=== PATIENT | female | born 1970 | race Caucasian/White ===

== ENCOUNTER → 2016-09-01 | Outpatient (CLI) | payer OTHER ==
[2016-09-01 16:52] LABS: FREE T4 (FREE THYROXINE) 1.8 ng/dL (0.93-1.71)
== END ==
LOC: LAB 15:52
PROVIDERS: ATTEND Student in an Organized Health Care Education/Training Program
DX: E89.0 Postprocedural hypothyroidism (principal); E53.8 Deficiency of other specified B group vitamins; Z86.39 Personal history of other endocrine, nutritional and metabolic disease
CPT/HCPCS: 36415; 82306; 82607; 82746; 84439; 84443; 84480

== ENCOUNTER → 2016-10-21 | Outpatient (CLI) | payer OTHER ==
[2016-10-21 14:08] LABS: FREE T4 (FREE THYROXINE) 1.67 ng/dL (0.93-1.71)
== END ==
LOC: LAB 12:55
PROVIDERS: ATTEND Student in an Organized Health Care Education/Training Program
DX: E89.0 Postprocedural hypothyroidism (principal); E53.8 Deficiency of other specified B group vitamins; E05.00 Thyrotoxicosis with diffuse goiter without thyrotoxic crisis or storm; Z86.39 Personal history of other endocrine, nutritional and metabolic disease
CPT/HCPCS: 36415; 82607; 83921; 84439; 84443; 84480

== ENCOUNTER 2016-12-20 09:49 | Observation (INO) | payer OTHER ==
[2016-12-20] MEDS ORDERED: NITROGLYCERIN 0.4 MG SL TAB (BOTTLE OF 3) SL ONE (09:58)
[2016-12-20] MEDS ORDERED: ASPIRIN 81 MG (BABY) CHEWABLE TABLET ONE (09:58)
[2016-12-20] MEDS ORDERED: ASPIRIN 81 MG (BABY) CHEWABLE TABLET PO ONE (09:59)
[2016-12-20] MEDS ORDERED: NORMAL SALINE 10 ML SYRINGE FLUSH IVP PRN (09:59)
[2016-12-20] MEDS ORDERED: Sodium Chloride 0.9% 1,000 ML PRIMARY IV ONE (09:59)
[2016-12-20] MEDS: NITROGLYCERIN 0.4 MG SL TAB (BOTTLE OF 3) SL PRN ×3 (10:01→10:14)
--- NOTE | 2016-12-20 10:01 | EKG ---
[address] [address] Measurements Intervals [place] Rate: 77 P: 34 NC: 144 QRS: 27 QRSD: 82 T: 33 QT: 380 QTc: 412 Interpretive Statements SINUS RHYTHM SEPTAL MYOCARDIAL INFARCTION PROBABLY OLD Compared to ECG 11/22/2013 17:54:04 Myocardial infarct finding now present Sinus arrhythmia no longer present Electronically Signed On 12-20-16 16:11:29 MDT by Justin Keen [id number]
[2016-12-20 10:13] LABS: EOSINOPHILS # (AUTO) 0.19 10*3/UL; MEAN CORPUSCULAR HEMOGLOBIN 28.8 PG (27-31)
--- NOTE | 2016-12-20 10:23 | PDOC ---
Chest Pain HPI - General Chief Complaint: Chest Pain Stated Complaint: chest pain and down L arm Date Seen by Provider: 12/20/16 Time Seen by Provider: 09:50 Source: Patient Exam Limitations: POSITIVE: No limitations Treatment Prior to Arrival: REPORTS: None Nurse's Notes Reviewed & Considered: Yes - History of Present Illness Initial Comments: The patient is a 46-year-old female who presents to the emergency department with complaints of chest pain. She states that shortly after waking up this morning she had onset of chest pain. She has been busy at work this morning and has had continued pain. The pain fluctuates however has not completely resolved and is currently about an 8 out of 10. She describes the pain as being in the left side of her chest with some radiation towards her left arm. She has some associated nausea however denies palpitations, lightheadedness, shortness of breath or any other associated symptoms. She reports that she has not had similar pain previously. Her pain is not worsened with activity or with taking a deep breath. She denies any known history of hypertension, diabetes or hyperlipidemia although she admits she has not had her blood work checked for some time. She does not have any known history of heart disease or blood clots. - Patient Home Medications Home Medications: Home Medications Levothyroxine Sodium 1 tab PO DAILY tab 06/21/16 - Patient Allergies Allergies/Adverse Reactions: Allergies Allergy/AdvReac Type Severity Reaction Status Date / Time No Known Drug Allergies Allergy NOT Verified 12/20/16 13:52 APPLICABLE Past Medical History - heen HEENT History: Other (please comment) Additional HEENT History: HX OF EYE SX (STRABISMUS) Cardiovascular History: Denies History Respiratory History: Sleep Apnea, Home CPAP Use, Snoring Gastrointestinal History: Denies History Genitourinary History: Denies History Endocrine History: Hypothyroidism, Hyperthyroidism Additional Endocrine History: GRAVES DISEASE. DECOMPRESSION SURGERY. LATERAL RELEASE. 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 Neurological History: Migraines Blood Disorders: Denies History Psychiatric History: Depression History of Sexually Transmitted Diseases: No Cancer History: Denies History History of MDRO: No History of Other Communicable Diseases: No Alcohol Use: None Substance Use Type: None Previous Surgical History: Yes Type / Date of Surgery: C SECTION X 2/ FEI/ EYE SX/ THOROIDECTOMY/ TONSILLECTOMY/ TUBAL/ LEFT KNEE SCOPE Anesthesia Reactions: No Malignant Hyperthermia: No Significant Family History: Heart disease, Diabetes, Other (please comment) Additional Family History: THYROID Past Medical History Reviewed: Reviewed - No Changes ROS - Limitations ROS Limitations: No Limitations Constitution: REPORTS: Denies Symptoms Cardiovascular: REPORTS: Chest Pain, Edema (She reports frequent edema in her lower extremities). DENIES: Heart Racing, Heart Palpitations Respiratory: REPORTS: Denies Resp Symptoms. DENIES: Hurts To Breathe, Shortness Of Breath Neurological: REPORTS: Denies Neuro Symptoms Gastrointestinal: REPORTS: Nausea. DENIES: Abdominal Pain, Vomitting Musculoskeletal: REPORTS: Lower Extremity Swelling. DENIES: Calf Pain Eyes: REPORTS: Denies Symptoms ENT: REPORTS: Denies Symptoms Skin: DENIES: Rash Chest Pain PE - General Appearance General Appearance: REPORTS: Alert, Cooperative, No Acute Distress - HEENT HEENT: POSITIVE: Head Inspection Nml, Eyes Inspection Nml, Ears Inspection Nml, Pharynx Inspect. Nml - Neck Neck: REPORTS: Normal Inspection. DENIES: JVD Present - Respiratory Respiratory: REPORTS: No Respiratory Distress, Breath Sounds Normal - Cardiovascular Cardiovascular: REPORTS: Regular Rate and Rhythm, Heart Sounds Normal - Abdomen Abdomen: Soft: (All Quadrants), Denies Tenderness: (All Quadrants), No Distention: (All Quadrants) - Skin Skin: REPORTS: Intact, No Rash - Extremities Extremity: Normal ROM: (All Extremities) Additional Extremities Details: Some edema noted in the lower extremities bilaterally - Neurological / Psychological Neurological: POSITIVE: Oriented X3, Motor Normal, Sensation Normal, Other (No focal neurologic deficits) Chest Pain Progress - Results Reviewed by me Xrays/CTs/US Reviewed by me: Yes Discussed with Radiologist: Yes Radiology Findings: Portable chest x-ray is unremarkable. CT PE protocol is negative for any PE or dissection, no other acute findings per radiologist Lab Results:: Laboratory Results 12/20/16 Range/Units 10:07 WBC 7.78 (4.8-10.8) 10^3/uL RBC 4.75 (4.20-5.40) 10^6/uL Hgb 13.7 (12.0-16.0) g/dL Hct 41.2 (37.0-47.0) % MCV 86.7 (81-99) FL MCH 28.8 (27-31) PG MCHC 33.3 (33-37) g/dL RDW Std Deviation 44.2 (39-50) fL RDW Coeff of Iqra 14.1 (11.5-14.5) % Plt Count 352 H (140-350) 10*3/uL MPV 10.4 (7.4-12.2) FL Immature Gran % (Auto) 0.3 (0-5) % Neut % (Auto) 59.9 (50-80) % Lymph % (Auto) 27.6 (10-50) % [place] % (Auto) 8.5 (5-15) % Eos % (Auto) 2.4 (0-8) % Baso % (Auto) 1.3 H (0-1) % Immature Gran # (Auto) 0.02 10*3/UL Neut # (Auto) 4.66 10*3/UL Lymph # (Auto) 2.15 10*3/uL [place] # (Auto) 0.66 (0.3-0.8) 10*3/UL Eos # (Auto) 0.19 10*3/UL Baso # (Auto) 0.10 10*3/UL WBC Morphology Comment Normal morphology (NORM) Plt Morphology Comment Normal morphology (NORM) RBC Morph Comment Normal morphology (NORM) D-Dimer 0.28 (0.00-0.59) mg/L Sodium 140 (135-145) meq/L Potassium 3.9 (3.8-5.2) meq/L Chloride 104 (98-112) meq/L Carbon Dioxide 20 L (23-33) meq/L Anion Gap 16 (5-20) BUN 21 (7-22) mg/dL Creatinine 0.8 (0.50-1.20) mg/dL Estimated GFR > 60 (>60 ml/min/1.73m(2)) BUN/Creatinine Ratio 26.25 H (6-20) Glucose 90 (78-110) mg/dL Calculated Osmolality 292.0 (267-292) mOsm/kg Calcium 9.7 (8.7-10.7) mg/dL Magnesium 1.7 (1.6-2.4) mg/dL Total Bilirubin 0.5 (0.3-1.2) mg/dL AST 15 (8-39) IU/L ALT 27 (9-52) IU/L Alkaline Phosphatase 79 (38-126) IU/L CK-MB (CK-2) 2.06 (0.00-5.00) NG/ML Troponin I < 0.012 (< 0.040) ng/mL Total Protein 7.6 (6.1-8.0) g/dL Albumin 4.1 (3.5-4.8) g/dL Globulin 3.5 (2.50-4.10) g/dL Albumin/Globulin Ratio 1.10 L (1.3-2.0) mg/g Amylase 72 (30-110) U/L Lipase 62 (23-300) IU/L EKG Interpreted/Reviewed By Me:: Yes EKG Interpretation:: POSITIVE: Normal Sinus Rhythm, Normal Rate, Normal Intervals, Normal QRS, Other (She does have a T-wave inversion in lead 3this was not present on previous EKG from 2013 however the T-wave was flat in that lead on that particular exam, no ST segment changes) - Patient's Progress MDM / ED Course: Her initial EKG shows no obvious ST segment changes. She was given aspirin per chest pain protocol as well as sublingual nitroglycerin. The nitroglycerin resulted in no improvement in her chest pain and she subsequently received fentanyl and Zofran with some improvement in pain. Her lab work reveals a normal d-dimer and normal troponin and other lab work is essentially unremarkable. Because of her ongoing pain a CTA of her chest was performed which was negative for PE or dissection. The patient did receive Protonix 40 mg IV. At this point the exact etiology of her pain is unclear. It is possible this may be reflux related. Decision was made to admit for further cardiac monitoring and workup. Dr. Paula has agreed to admit the patient. - Consult Counseled: POSITIVE: Patient, RE: Lab Results, RE: Radiology Results, RE: DX Patient Care Time - Estimated PCT Patient Care Time (In Minutes): 35 Vital Signs - Recent Vital Signs Vital Signs: Vital Signs (Last 8 hours) Temp Pulse Pulse Pulse Pulse Resp BP 12/20/16 13:41 68 12/20/16 13:37 97.7 F 56 L 18 125/57 12/20/16 12:55 96.8 F 12/20/16 10:10 65 18 108/64 12/20/16 10:08 68 18 129/84 12/20/16 09:59 77 12/20/16 09:49 97.4 F 71 70 71 22 138/78 Pulse Ox 12/20/16 13:41 12/20/16 13:37 94 12/20/16 12:55 12/20/16 10:10 94 12/20/16 10:08 86 12/20/16 09:59 12/20/16 09:49 96 - VS Reviewed Vital Signs Reviewed: Yes Discharge Clinical Impression: Chest pain Discharge Disposition: Admit to Observation Condition: Fair
[2016-12-20 10:27] LABS: BASOPHILS % (AUTO) 1.3 % (0-1); EOSINOPHILS % (AUTO) 2.4 % (0-8); HEMATOCRIT 41.2 % (37.0-47.0); HEMOGLOBIN 13.7 g/dL (12.0-16.0); LYMPHOCYTES # (AUTO) 2.15 10*3/uL; MEAN CORPUSCULAR HGB CONC 33.3 g/dL (33-37); MEAN CORPUSCULAR VOLUME 86.7 FL (81-99); MEAN PLATELET VOLUME 10.4 FL (7.4-12.2); MONOCYTES # (AUTO) 0.66 10*3/UL (0.3-0.8); MONOCYTES % (AUTO) 8.5 % (5-15); NEUTROPHILS # (AUTO) 4.66 10*3/UL; NEUTROPHILS % (AUTO) 59.9 % (50-80); RED BLOOD COUNT 4.75 10^6/uL (4.20-5.40)
[2016-12-20 10:30] LABS: PLATELET MORPHOLOGY COMMENT NORMAL MORPHOLOGY (NORM); RBC MORPHOLOGY COMMENT NORMAL MORPHOLOGY (NORM); WBC MORPHOLOGY COMMENT NORMAL MORPHOLOGY (NORM)
[2016-12-20 10:36] LABS: BLOOD UREA NITROGEN 21 mg/dL (7-22); BUN/CREATININE RATIO 26.25 (6-20); CALCIUM 9.7 mg/dL (8.7-10.7); EST GLOMERULAR FILTRATION > 60 (>60 ml/min/1.73m(2)); LIPASE 62 IU/L (23-300); MAGNESIUM 1.7 mg/dL (1.6-2.4); SERUM ALBUMIN 4.1 g/dL (3.5-4.8)
[2016-12-20] MEDS ORDERED: ONDANSETRON 4 MG/2 ML VIAL IVP ONE (10:37)
[2016-12-20] MEDS: fentaNYL Inj 100 MCG/2 ML VIAL IVP ONE ×2 (10:43→11:11)
[2016-12-20 10:58] LABS: CREATINE KINASE MB 2.06 NG/ML (0.00-5.00)
[2016-12-20 11:00] LABS: TROPONIN I < 0.012 ng/mL (< 0.040)
--- NOTE | 2016-12-20 11:00 | DI ---
XR CXR 1VW,12/20/2016 9:59 AM: Clinical History: Chest pain Previous Exam: November 22, 2013 Findings: A single frontal radiograph of the chest is obtained, and demonstrates clear lungs. The cardiomediast inum and bony thorax are unremarkable. Impression: No acute disease.
--- NOTE | 2016-12-20 12:40 | DI ---
CT CTA CHEST NONCORONARY W/WO,12/20/2016 11:11 AM: Clinical History: Chest pain. Previous Exam: None at this facility. IV contrast: 75 cc Isovue 350 Findings: Multiple helically acquired CT images are obtained through the chest following a CT chest angiogram p rotocol, and demonstrate normal pulmonary arteries without filling defect nor truncation to suggest p ulmonary embolism. There is some mild edema within the dependent lungs. The heart is normal. The upper abdomen is unremarkable. The aorta is within normal limits. Impression: 1. No evidence of pulmonary embolism.
[2016-12-20] MEDS ORDERED: Pantoprazole Inj 40 MG in Normal Saline Flush 10 ML IVP ONE (12:47)
[2016-12-20] MEDS ORDERED: ROCURONIUM 10 MG/1 ML - 5 ML VIAL IVP ONE (13:19)
[2016-12-20] MEDS ORDERED: LIDOCAINE W/ SODIUM BICARB 0.5 ML SYR SUBD PRN (13:34)
[2016-12-20] MEDS ORDERED: PROMETHAZINE 25 MG/1 ML VIAL IM PRN (13:34)
[2016-12-20] MEDS ORDERED: NITROGLYCERIN 0.4 MG SL TAB (BOTTLE OF 3) SL PRN (13:34)
--- NOTE | 2016-12-20 16:24 | PDOC ---
History and Physical - History of Present Illness History of Present Illness: This very year-old female who when she woke up this morning to go to work start having some chest pains the pain was continuous at times it got better but never totally went away she says it radiates to the left side of Iqra arm accompanied by some nausea and vomiting but denies shortness of breath or diaphoresis her pain is not worse with activity or taking a deep breath her past medical history significant for hypothyroidism She was admitted by the hospitalist service for further evaluation and treatment Past Medical History Medical History: Hypothyroidism Tobacco Use: Current Every Day Smoker Do you dip or chew tobacco: No Substance Use Type: None Alcohol Use: None Medication / Allergies Home Medications: Home Medications Medication Instructions Recorded Confirmed Type Levothyroxine Sodium 1 tab PO DAILY tab 06/21/16 12/20/16 History Allergies/Adverse Reactions: Allergies Allergy/AdvReac Type Severity Reaction Status Date / Time No Known Drug Allergies Allergy NOT Verified 12/20/16 13:52 APPLICABLE Review of Systems - Review of Systems All Systems: Reviewed & No Additional Complaints Except as Stated - Respiratory Respiratory: DENIES: Negative System Review, Cough, Sputum, Dyspnea At Rest, Dyspnea with Exertion, Pleuritic Pain, Hemoptysis, Wheezing, Other, See HPI - Cardiovascular Cardiovascular: REPORTS: Chest Pain - Gastrointestinal Gastrointestinal / Abdominal: REPORTS: Nausea - Musculoskeletal Musculoskeletal: DENIES: Negative System Review, Back Pain, Neck Pain, Swelling , Calf Pain, Muscle Pain, Cramping, Joint Pain - Hands, Joint Pain - Elbows, Joint Pain - Shoulders, Joint Pain - Hips, Joint Pain - Knees, Joint Pain - Feet , AM Stiffness, Other, See HPI Exam - Vitals Vital Signs: Vital Signs Temperature 97.7 F Temperature Source Oral Pulse Rate [Pulse Oximeter] 56 Pulse Rate [Telemetry] 68 Pulse Rate 57 Respiratory Rate 18 Blood Pressure [Right Arm] 125/57 Pulse Ox 94 Oxygen Delivery Method Room Air Height 5 ft 3 in Weight 128.73 kg - General General Appearance: POSITIVE: No Acute Distress, Cooperative - Head Head Exam: POSITIVE: Normal Inspection, Normocephalic, Atraumatic - Eye Eye Exam: POSITIVE: Normal Appearance, PERRL, EOMI - Respiratory Respiratory Exam: POSITIVE: Clear to Auscultation - Bilaterally, Breathing Non Labored, Normal To Percussion, Normal to Percussion and Palpation - Cardiovascular Cardiovascular Exam: POSITIVE: RRR, No Murmur, No Clicks, No Gallops - GI/Abdominal GI/Abdominal Exam: POSITIVE: Normal Bowel Sounds, Non Distended, Soft - Extremities Extremities Exam: POSITIVE: No Clubbing Present, No Edema Present, No Cyanosis Present - Neurological Neurological Exam: POSITIVE: Alert, Oriented x 3, CN II-XII Intact, No Facial Droop Results - Labs CBC and BMP: 12/20/16 10:07 12/20/16 10:07 Assessment and Plan - Patient Problems (1) Chest pain Current Visit: Yes Status: Acute Comment: Rule out with troponins first set is negative no EKG changes this is atypical pain it is reproducible when I push in the middle of her chest she says that the same intensity (2) Costochondritis Current Visit: Yes Status: Acute Comment: Most likely diagnoses but she is a smoker one pack a day we will get a stress test Photo / Body Diagrams - Uploaded Photos Uploaded Photos:
[2016-12-20 16:54] LABS: TROPONIN I < 0.012 ng/mL (< 0.040)
[2016-12-20] MEDS ORDERED: Sodium Chloride 0.9% 1,000 ML ONE (18:05)
[2016-12-20] MEDS ORDERED: KETOROLAC 15 MG/1 ML VIAL IVP SCH (18:45)
[2016-12-20] MEDS: KETOROLAC 15 MG/1 ML VIAL IVP PRN (18:55)
[2016-12-20] MEDS: NORMAL SALINE 10 ML SYRINGE FLUSH IVP PRN ×2 (18:56→22:12)
[2016-12-20] MEDS: ONDANSETRON 4 MG/2 ML VIAL IVP PRN (22:12)
[2016-12-21] MEDS ORDERED: Sodium Chloride 0.9% 1,000 ML IV ONE (00:31)
[2016-12-21] MEDS: Loperamide Tab 2 MG TABLET PO PRN ×2 (00:54→05:17)
[2016-12-21] MEDS: Sodium Chloride 0.9% 1,000 ML PRIMARY IV SCH ×2 (01:43→11:39)
[2016-12-21 05:02] LABS: BLOOD UREA NITROGEN 16 mg/dL (7-22); CALCIUM 8.7 mg/dL (8.7-10.7); CHOL/HDL RATIO 4.56 RATIO (0-4.0); EST GLOMERULAR FILTRATION > 60 (>60 ml/min/1.73m(2)); HDL CHOLESTEROL 46 mg/dL (40-150); SERUM ALBUMIN 3.6 g/dL (3.5-4.8); SERUM CHOLESTEROL 210 mg/dL (120-200)
[2016-12-21] MEDS: LEVOTHYROXINE 88 MCG TABLET PO SCH (05:18)
[2016-12-21] MEDS: NORMAL SALINE 10 ML SYRINGE FLUSH IVP PRN (07:40)
[2016-12-21] MEDS: ONDANSETRON 4 MG/2 ML VIAL IVP PRN (07:40)
[2016-12-21] MEDS: Pantoprazole Inj 40 MG in Normal Saline Flush 10 ML IVP SCH (09:22)
[2016-12-21] MEDS: ENOXAPARIN SODIUM 40 MG/0.4 ML SYRINGE SUBCUT SCH (09:22)
--- NOTE | 2016-12-21 10:23 | STRESSTEST ---
[facility] [place] Interpretive Statements This is a 46 YO female with chest pain without known risk factors for CAD who presented with chest pain. Not able to do treadmill stress test due to morbid obesity. Reina scan stress test done. resting EKG is NSR. test completed and patient had symptoms of "feeling like jelly", resolved. Plan: images to follow and radiology to review. [id number]
[2016-12-21 11:55] LABS: FREE T4 (FREE THYROXINE) 1.55 ng/dL (0.93-1.71)
--- NOTE | 2016-12-21 14:03 | PDOC(PROG) ---
Date and Time of Service: 12/21/2016, 1400 Interval History: States her chest pain is gone. She feels nauseous and has diarrhea. Thus far, stool workup is negative with negative C. difficile study. At first part of stress test today with stress component today. Resting images to follow tomorrow. She also wondered about her thyroid function. She states she has had a cholecystectomy in the past and a thyroidectomy in the past. Objective : Data - Labs CBC and BMP: 12/20/16 10:07 12/21/16 04:30 Labs - Last 24 Hours: Laboratory Results 12/20/16 12/20/16 12/21/16 Range/Units 15:58 22:07 04:30 D-Dimer 0.35 (0.00-0.59) mg/L Sodium 140 (135-145) meq/L Potassium 4.5 (3.8-5.2) meq/L Chloride 107 (98-112) meq/L Carbon Dioxide 21 L (23-33) meq/L Anion Gap 12 (5-20) BUN 16 (7-22) mg/dL Creatinine 0.8 (0.50-1.20) mg/dL Estimated GFR > 60 (>60 ml/min/1.73m(2)) BUN/Creatinine Ratio 20.00 (6-20) Glucose 98 (78-110) mg/dL Calculated Osmolality 290.0 (267-292) mOsm/kg Calcium 8.7 (8.7-10.7) mg/dL Total Bilirubin 0.4 (0.3-1.2) mg/dL AST 13 (8-39) IU/L ALT 25 (9-52) IU/L Alkaline Phosphatase 68 (38-126) IU/L Total Creatine Kinase 68 (30-135) IU/L Troponin I < 0.012 < 0.012 (< 0.040) ng/mL Total Protein 6.5 (6.1-8.0) g/dL Albumin 3.6 (3.5-4.8) g/dL Globulin 2.9 (2.50-4.10) g/dL Albumin/Globulin Ratio 1.20 L (1.3-2.0) mg/g Triglycerides 153 (44-200) mg/dL Cholesterol 210 H (120-200) mg/dL LDL Cholesterol, Calc 133.400 mg/dL VLDL Cholesterol 30 (0-40) mg/dL HDL Cholesterol 46 (40-150) mg/dL Cholesterol/HDL Ratio 4.56 H (0-4.0) RATIO TSH (0.2700-4.2000) uIU/mL Free T4 (0.93-1.71) ng/dL Free T3 pg/mL (2.77-5.27) PG/ML 12/21/16 Range/Units 05:00 D-Dimer (0.00-0.59) mg/L Sodium (135-145) meq/L Potassium (3.8-5.2) meq/L Chloride (98-112) meq/L Carbon Dioxide (23-33) meq/L Anion Gap (5-20) BUN (7-22) mg/dL Creatinine (0.50-1.20) mg/dL Estimated GFR (>60 ml/min/1.73m(2)) BUN/Creatinine Ratio (6-20) Glucose (78-110) mg/dL Calculated Osmolality (267-292) mOsm/kg Calcium (8.7-10.7) mg/dL Total Bilirubin (0.3-1.2) mg/dL AST (8-39) IU/L ALT (9-52) IU/L Alkaline Phosphatase (38-126) IU/L Total Creatine Kinase (30-135) IU/L Troponin I (< 0.040) ng/mL Total Protein (6.1-8.0) g/dL Albumin (3.5-4.8) g/dL Globulin (2.50-4.10) g/dL Albumin/Globulin Ratio (1.3-2.0) mg/g Triglycerides (44-200) mg/dL Cholesterol (120-200) mg/dL LDL Cholesterol, Calc mg/dL VLDL Cholesterol (0-40) mg/dL HDL Cholesterol (40-150) mg/dL Cholesterol/HDL Ratio (0-4.0) RATIO TSH 0.717 (0.2700-4.2000) uIU/mL Free T4 1.55 (0.93-1.71) ng/dL Free T3 pg/mL 3.14 (2.77-5.27) PG/ML Objective : Exam - General General Appearance: No Acute Distress, Cooperative Additional General Exam Details: Vital Signs - Last Taken Temperature 97.1 F 12/21/16 08:49 Pulse Rate 82 12/21/16 11:00 Respiratory Rate 20 12/21/16 08:49 Blood Pressure 103/47 12/21/16 08:49 Pulse Ox 91 12/21/16 08:49 - Eye Eye Exam: No Scleral Icterus - Respiratory Respiratory Exam: Clear to Auscultation - Bilaterally, Breathing Non Labored - Cardiovascular Cardiovascular Exam: RRR, No Murmur, No Clicks, No Gallops, No Rubs, No JVD - GI/Abdominal GI/Abdominal Exam: Normal Bowel Sounds, Non Tender, Non Distended, Soft - Extremities Extremities Exam: No Clubbing Present, No Edema Present, No Cyanosis Present - Neurological Neurological Exam: Alert, Oriented x 3, No Facial Droop, Speech Intact / Clear, Moves All Extremities Equally Assessment and Plan - Patient Problems (1) Chest pain Current Visit: Yes Status: Acute (2) Hypothyroidism Current Visit: Yes Status: Acute Qualifiers: Hypothyroidism type: acquired Qualified Description: Acquired hypothyroidism Qualifier Code(s): (E03.9) Hypothyroidism, unspecified (3) Morbid obesity Current Visit: Yes Status: Acute Qualifiers: Obesity type: unspecified obesity type Qualified Description: Morbid obesity, unspecified obesity type Qualifier Code(s): (E66.01) Morbid ( severe) obesity due to excess calories - Assessment / Plan Additional Assessment/Plan Details: complete stress test tomorrow need to discuss diet and lifestyle changes to improve overall health for this patient. Photo / Body Diagrams - Uploaded Photos Uploaded Photos:
[2016-12-21] MEDS: KETOROLAC 15 MG/1 ML VIAL IVP PRN (16:20)
[2016-12-21] MEDS ORDERED: ACETAMINOPHEN 500 MG TABLET PO PRN (19:56)
[2016-12-22] MEDS: LEVOTHYROXINE 88 MCG TABLET PO SCH (05:54)
[2016-12-22] MEDS: KETOROLAC 15 MG/1 ML VIAL IVP PRN (05:58)
[2016-12-22] MEDS: NORMAL SALINE 10 ML SYRINGE FLUSH IVP PRN (06:00)
[2016-12-22 08:20] VITALS: RESP 18
[2016-12-22] MEDS: ENOXAPARIN SODIUM 40 MG/0.4 ML SYRINGE SUBCUT SCH (08:48)
[2016-12-22] MEDS: Pantoprazole Inj 40 MG in Normal Saline Flush 10 ML IVP SCH (08:48)
[2016-12-22 12:08] VITALS: TEMP 98
--- NOTE | 2016-12-22 14:06 | DI ---
2 DAY LEXISCAN STRESS & REST MYOCARDIAL PERFUSION SCANS, 12/21/2016 10:00 AM : Clinical History: Chest pain. Previous Exam: None at this facility. The patient was stressed by Dr. Bentley estevez. The standard Lexiscan protocol was used. Please see the Doctor's report. At the designated time, 32.9 mCi of 99Tc-sestimibi was injected IV. Stress gated tomograms were acquired within one hour of the i njection. For the resting scans, 33.6 mCi was injected IV and resting gated tomograms were acquired in similar fashion. Stress scans were performed on December 21, 2016; the resting scans were performed on December 22, 2016. Quantitative and qualitative analyses were performed. Quantitative analysis was performed with the [place] [facility] [id number] protocols. Very low dose limited CT scans of the chest are o btained through the level of the heart for attenuation correction of the gated stress and rest cardia c SPECT data. Non-attenuated and attenuated scans were processed for review, and the attenuated scans were used for final interpretation of this study. Review of the raw data images and quality improvement analyst files indicate that these series of examinations ar e of excellent quality. Stress and rest left ventricular chamber sizes are normal. Stress and rest LV EF are 79 % and 64 %, respectively. There is no evidence of ischemia. There is normal wall motion. Transient ischemic dilatation ratio is 0.90, with a normal range up to 1.22 for patients str essed with the Lee protocol and up to 1.33 for patients stressed with the Lexiscan protocol. The very low dose CT scans through the level of the heart show no coronary artery calcifications. The re is no adenopathy or evidence of lung nodules. Reading: Normal stress test.
--- NOTE | 2016-12-22 15:01 | DCSUMMARY ---
Hospitalization Summary Admit Date: 12/20/16 Discharge Date: 12/22/16 Primary Diagnosis:: chest pain, atypical, resolved Hospital Course: This very pleasant 46-year-old female with hypothyroidism, vitamin D deficiency , and vitamin B12 deficiency. She presented with chest pain that was atypical in nature and she was admitted for further evaluation and management. She ruled out for myocardial infarction and a Lexiscan stress test was done and she ruled out for coronary artery disease with that study. Her pains have completely resolved. During the hospital stay we found that her cholesterol was actually fairly well- controlled although her total cholesterol is up to 210. Her thyroid function appears normal and her free T4 and free T3 are okay. She does have a vitamin B12 deficiency but it has improved since August. I discussed with the patient some ideas for some weight loss and diet changes, with some simple interventions. I think her lifestyle interventions might help with stress reduction which she's had a lot of here lately. It's possible these chest pains were caused by anxiety. Today, no completes of chest pain, no shortness breath, no nausea or vomiting. Patient is ready to go home. Assessment and Plan: 1. As per discharge assessments noted 2. Disposition: Patient is discharged home. 3. Condition on discharge, stable and improved. 4. Diet: regular diet 5. Activities: resume normal activities 6. Follow-Up: 1. Primary care provider in one week 7. Medications at the Time of Discharge: Home Medications Medication Instructions Recorded Confirmed Type Levothyroxine Sodium 1 tab PO DAILY tab 06/21/16 12/20/16 History Cholecalciferol (Vitamin D3) 2,000 unit PO DAILY #60 capsule 12/22/16 Rx [Vitamin D3] Cyanocobalamin (Vitamin B-12) 2,500 mcg PO DAILY #30 tablet 12/22/16 Rx [Vitamin B12] 8. Time, care, counseling and coordination of care for this discharge is greater than 30 minutes. Exam - Vitals Vital Signs: Vital Signs Temperature 98 F Temperature Source Temporal Artery Scan Pulse Rate [Pulse Oximeter] 67 Pulse Rate [Telemetry] 65 Pulse Rate [Apical] 58 Pulse Rate 56 Respiratory Rate 18 Blood Pressure [Right Arm] 110/61 Pulse Ox 91 Oxygen Delivery Method Room Air Height 5 ft 3 in Weight 287 lb 9.6 oz - General General Appearance: POSITIVE: No Acute Distress, Cooperative - Eye Eye Exam: POSITIVE: No Scleral Icterus - Respiratory Respiratory Exam: POSITIVE: Clear to Auscultation - Bilaterally, Breathing Non Labored - Cardiovascular Cardiovascular Exam: POSITIVE: RRR, No Murmur, No Clicks, No Gallops, No Rubs, No JVD - GI/Abdominal GI/Abdominal Exam: POSITIVE: Normal Bowel Sounds, Non Tender, Non Distended, Soft - Extremities Extremities Exam: POSITIVE: No Clubbing Present, No Edema Present, No Cyanosis Present - Neurological Neurological Exam: POSITIVE: Alert, Oriented x 3, No Facial Droop, Speech Intact / Clear, Moves All Extremities Equally Data Perinent Studies: Laboratory Results 12/20/16 12/20/16 12/20/16 Range/Units 10:07 15:58 22:07 WBC 7.78 (4.8-10.8) 10^3/uL RBC 4.75 (4.20-5.40) 10^6/uL Hgb 13.7 (12.0-16.0) g/dL Hct 41.2 (37.0-47.0) % MCV 86.7 (81-99) FL MCH 28.8 (27-31) PG MCHC 33.3 (33-37) g/dL RDW Std Deviation 44.2 (39-50) fL RDW Coeff of Iqra 14.1 (11.5-14.5) % Plt Count 352 H (140-350) 10*3/uL MPV 10.4 (7.4-12.2) FL Immature Gran % (Auto) 0.3 (0-5) % Neut % (Auto) 59.9 (50-80) % Lymph % (Auto) 27.6 (10-50) % [place] % (Auto) 8.5 (5-15) % Eos % (Auto) 2.4 (0-8) % Baso % (Auto) 1.3 H (0-1) % Immature Gran # (Auto) 0.02 10*3/UL Neut # (Auto) 4.66 10*3/UL Lymph # (Auto) 2.15 10*3/uL [place] # (Auto) 0.66 (0.3-0.8) 10*3/UL Eos # (Auto) 0.19 10*3/UL Baso # (Auto) 0.10 10*3/UL WBC Morphology Comment Normal morphology (NORM) Plt Morphology Comment Normal morphology (NORM) RBC Morph Comment Normal morphology (NORM) D-Dimer 0.28 (0.00-0.59) mg/L Sodium 140 (135-145) meq/L Potassium 3.9 (3.8-5.2) meq/L Chloride 104 (98-112) meq/L Carbon Dioxide 20 L (23-33) meq/L Anion Gap 16 (5-20) BUN 21 (7-22) mg/dL Creatinine 0.8 (0.50-1.20) mg/dL Estimated GFR > 60 (>60 ml/min/1.73m(2)) BUN/Creatinine Ratio 26.25 H (6-20) Glucose 90 (78-110) mg/dL Calculated Osmolality 292.0 (267-292) mOsm/kg Calcium 9.7 (8.7-10.7) mg/dL Magnesium 1.7 (1.6-2.4) mg/dL Total Bilirubin 0.5 (0.3-1.2) mg/dL AST 15 (8-39) IU/L ALT 27 (9-52) IU/L Alkaline Phosphatase 79 (38-126) IU/L Total Creatine Kinase 68 (30-135) IU/L CK-MB (CK-2) 2.06 (0.00-5.00) NG/ML Troponin I < 0.012 < 0.012 < 0.012 (< 0.040) ng/mL Total Protein 7.6 (6.1-8.0) g/dL Albumin 4.1 (3.5-4.8) g/dL Globulin 3.5 (2.50-4.10) g/dL Albumin/Globulin Ratio 1.10 L (1.3-2.0) mg/g Triglycerides (44-200) mg/dL Cholesterol (120-200) mg/dL LDL Cholesterol, Calc mg/dL VLDL Cholesterol (0-40) mg/dL HDL Cholesterol (40-150) mg/dL Cholesterol/HDL Ratio (0-4.0) RATIO Amylase 72 (30-110) U/L Lipase 62 (23-300) IU/L TSH (0.2700-4.2000) uIU/mL Free T4 (0.93-1.71) ng/dL Free T3 pg/mL (2.77-5.27) PG/ML 05/10/17 05/10/17 Range/Units 04:30 05:00 WBC (4.8-10.8) 10^3/uL RBC (4.20-5.40) 10^6/uL Hgb (12.0-16.0) g/dL Hct (37.0-47.0) % MCV (81-99) FL MCH (27-31) PG MCHC (33-37) g/dL RDW Std Deviation (39-50) fL RDW Coeff of Iqra (11.5-14.5) % Plt Count (140-350) 10*3/uL MPV (7.4-12.2) FL Immature Gran % (Auto) (0-5) % Neut % (Auto) (50-80) % Lymph % (Auto) (10-50) % [place] % (Auto) (5-15) % Eos % (Auto) (0-8) % Baso % (Auto) (0-1) % Immature Gran # (Auto) 10*3/UL Neut # (Auto) 10*3/UL Lymph # (Auto) 10*3/uL [place] # (Auto) (0.3-0.8) 10*3/UL Eos # (Auto) 10*3/UL Baso # (Auto) 10*3/UL WBC Morphology Comment (NORM) Plt Morphology Comment (NORM) RBC Morph Comment (NORM) D-Dimer 0.35 (0.00-0.59) mg/L Sodium 140 (135-145) meq/L Potassium 4.5 (3.8-5.2) meq/L Chloride 107 (98-112) meq/L Carbon Dioxide 21 L (23-33) meq/L Anion Gap 12 (5-20) BUN 16 (7-22) mg/dL Creatinine 0.8 (0.50-1.20) mg/dL Estimated GFR > 60 (>60 ml/min/1.73m(2)) BUN/Creatinine Ratio 20.00 (6-20) Glucose 98 (78-110) mg/dL Calculated Osmolality 290.0 (267-292) mOsm/kg Calcium 8.7 (8.7-10.7) mg/dL Magnesium (1.6-2.4) mg/dL Total Bilirubin 0.4 (0.3-1.2) mg/dL AST 13 (8-39) IU/L ALT 25 (9-52) IU/L Alkaline Phosphatase 68 (38-126) IU/L Total Creatine Kinase (30-135) IU/L CK-MB (CK-2) (0.00-5.00) NG/ML Troponin I (< 0.040) ng/mL Total Protein 6.5 (6.1-8.0) g/dL Albumin 3.6 (3.5-4.8) g/dL Globulin 2.9 (2.50-4.10) g/dL Albumin/Globulin Ratio 1.20 L (1.3-2.0) mg/g Triglycerides 153 (44-200) mg/dL Cholesterol 210 H (120-200) mg/dL LDL Cholesterol, Calc 133.400 mg/dL VLDL Cholesterol 30 (0-40) mg/dL HDL Cholesterol 46 (40-150) mg/dL Cholesterol/HDL Ratio 4.56 H (0-4.0) RATIO Amylase (30-110) U/L Lipase (23-300) IU/L TSH 0.717 (0.2700-4.2000) uIU/mL Free T4 1.55 (0.93-1.71) ng/dL Free T3 pg/mL 3.14 (2.77-5.27) PG/ML Patient Problems - Patient Problem List (1) Chest pain Current Visit: Yes Status: Resolved (2) Hypothyroidism Current Visit: Yes Status: Acute Qualifiers: Hypothyroidism type: acquired Qualified Description: Acquired hypothyroidism Qualifier Code(s): (E03.9) Hypothyroidism, unspecified (3) Morbid obesity Current Visit: Yes Status: Acute Qualifiers: Obesity type: unspecified obesity type Qualified Description: Morbid obesity, unspecified obesity type Qualifier Code(s): (E66.01) Morbid ( severe) obesity due to excess calories (4) Vitamin D deficiency Current Visit: Yes Status: Acute (5) Vitamin B12 deficiency Current Visit: Yes Status: Acute
== END 2016-12-22 15:43 | disposition home or self-care (01) ==
LOC: ER 09:49 → MED/SURG 13:00
PROVIDERS: ADMIT Internal Medicine; ATTEND Internal Medicine
DX: R07.9 Chest pain, unspecified (principal); E03.9 Hypothyroidism, unspecified; E55.9 Vitamin D deficiency, unspecified; E53.8 Deficiency of other specified B group vitamins; E66.01 Morbid (severe) obesity due to excess calories
CPT/HCPCS: 36415 ×2; 71010; 71275; 78452; 80053 ×2; 80061; 82150; 82550; 82553; 83690; 83735; 84439; 84443; 84481; 84484; 85025; 85379 ×2; 87328; 87329; 87493; 93005; 93010; 93016; 93017; 93018; 94761; 96361; 96374 ×3; 96375 ×4; 99284; 99285; A9500; J1650 ×2; J2785; J3010; J1885; J2405; J3490; J7030

== ENCOUNTER → 2017-02-28 | Outpatient (CLI) | payer OTHER ==
[2017-02-28 17:05] LABS: FREE T4 (FREE THYROXINE) 1.89 ng/dL (0.93-1.71); VITAMIN D 25-HYDROXY 44.8 NG/ML (30-100)
== END ==
LOC: LAB 16:10
PROVIDERS: ATTEND Student in an Organized Health Care Education/Training Program
DX: E05.00 Thyrotoxicosis with diffuse goiter without thyrotoxic crisis or storm (principal); Z86.39 Personal history of other endocrine, nutritional and metabolic disease
CPT/HCPCS: 36415; 82306; 82607; 84439; 84443